=== PATIENT | male | born 2000 | race Caucasian/White ===

== ENCOUNTER 2022-12-05 19:13 | Emergency (ER) | payer OTHER, SELFPAY ==
[2022-12-05 19:24] VITALS: BP 142/85; PULSE 98; RESP 20; TEMP 36.6; O2SAT 99
--- NOTE | 2022-12-05 19:30 | DI.RAD_ITS ---
Exam(s) XR TOE RT FIFTH EXAM: XR TOE RT FIFTH CLINICAL HISTORY: trauma. TECHNIQUE: 2D digital imaging was performed. COMPARISON: No exams were available for comparison FINDINGS: BONES: No acute fracture is present. No bony destructive lesion is seen. JOINTS: No dislocation present. SOFT TISSUE: Swelling around 5th toe. Partial toenail avulsion. IMPRESSION: Partial toenail avulsion. No fracture. DATA REPOSITORY: RADIATION DOSE DELIVERED:
--- NOTE | 2022-12-05 20:39 | DI.VRAD_ITS ---
PROCEDURE INFORMATION: Exam: XR Right Toe(s) Exam date and time: 12/05/2022 7:49 PM Age: 22 years old Clinical indication: Other: Trauma; Additional info: Trauma to right fifth toe TECHNIQUE: Imaging protocol: Radiologic exam of the right toes. Views: Minimum 2 views. COMPARISON: No relevant prior studies available. FINDINGS: Bones/joints: Bone mineralization is age-appropriate. There is no evidence of fracture. No evidence of dislocation. The joint spaces are adequately preserved; no significant degenerative narrowing and no bony erosion seen. Soft tissues: No radiopaque foreign body present. There is soft tissue swelling present. There appears to be partial avulsion the toenail of the 5th toe. IMPRESSION: 1. No acute osseous abnormality. 2. There is soft tissue swelling present. There appears to be partial avulsion the toenail of the 5th toe. Dictated and Authenticated by: Mich Felix MD. Ordering:ADAIR Smith MD
--- NOTE | 2022-12-05 21:32 | W.ED.GENAD ---
Discharge Plan Disposition Patient Disposition: Home Discharge Details Clinical Impression: Avulsion of toenail of right foot Primary Care Provider: None,None ED Provider: Luis Goldstein Home Meds and New Rx's Prescriptions: No Action No Known Home Meds Discharge Instructions Instructions: Nail Avulsion (ED) Additional Instructions: Please protect your toenail and be very gentle with any dressing changes. Monitor for signs of infection and return immediately if these occur otherwise follow-up with your primary care provider as needed. It is very likely that your toenail will eventually fall off but the longer the nail is left in place will give you the best benefit for normal regrowth but this may not be fully known for months. Stand Alone Forms: Work Release Referrals: Primary Care Provider [Outside] Discharge Data Discharge Date/Time-TO BE ENTERED AT DEPARTURE: 12/05/22 21:46 Medical Decision Making Right little toenail avulsion. No other injury. Patient up-to-date on tetanus. radiological imaging reviewed and shows no acute fracture. Nail was replanted into nailbed after digital block which patient tolerated well. Wound was dressed and patient to follow-up with primary care provider for reassessment as needed or return for any signs of infection. After discussion of diagnosis and plan of care patient has no further needs, questions, or concerns and states clear understanding to return to the emergency department for any worsening symptoms. This documentation was generated using [employer] dictation system, please disregard any oddities of phrase or misspellings. HPI General Mode of arrival: ambulatory. Date/Time Provider Initiated Documentation: 12/05/22 19:29. Limitations to Documentation: no limitations. Information obtained by: patient and RN notes reviewed. History of Present Illness 22 year old M presents to the emergency department with the chief complaint of Right fifth toe injury, described as moderate, and is localized to the right and lower extremity. Patient started experiencing this hour(s) (1) and it has been constant. Patient notes no other symptoms.. Patient did receive the following treatments prior to arrival, none Related Data Home Medications Medication Instructions Recorded Confirmed Unknown [No Known Home Meds] 12/05/22 12/05/22 Allergies Allergy/AdvReac Type Severity Reaction Status Date / Time No Known Allergies Allergy Unverified 12/05/22 19:40 General Stated Complaint: Orthopedic FLORA: 4 Review of Systems Narrative: 6 systems reviewed and unremarkable except what is marked below. Integumentary/Breasts Skin/Breast: Reports as per [facility] All Active Problems (Updated 12/05/22 @ 21:35 by Luis Goldstein NP) Avulsion of toenail of right foot (Acute) Social History Smoking/Tobacco Use Status: Never Smoking risk assessment performed?: Yes Alcohol Intake: current Alcohol Intake frequency: a few times a month Drug use: Rarely Substance use type: marijuana Exam Const General: cooperative, no acute distress and not ill appearing Orientation: alert, awake and oriented x3 HENMT Mouth: moist mucous membranes Resp Effort & Inspection: normal respiratory effort, able to speak in complete sentences and no respiratory distress Cardio Rate: regular rate Rhythm: regular rhythm Pulses: dorsalis pedis present and normal peripheral pulses Skin General skin exam: no rashes or lesions noted Neuro General: patient alert, patient awake, patient oriented x3, moves all extremities and no focal motor deficits Sensory Exam: no sensory deficits noted Extrem General: normal exam except as noted Right lower extremity: foot Details: abnormal to inspection Details: a deformity Location: of the 5th digit (Toenail avulsion), tenderness Location: of another digit Location: the 5th digit and over the nailbed, toes with normal ROM and vascular exam Details: dorsalis pedis pulse present, posterior tibial pulse present and normal capillary refill Course Vital Signs Vital signs: Vital Signs Temperature 36.6 C 12/05/22 19:24 Pulse 98 H 12/05/22 19:24 Respiratory Rate 20 12/05/22 19:24 Blood Pressure 142/85 H 12/05/22 19:24 Pulse Oximetry 99 12/05/22 19:24 Temperature 36.6 C 12/05/22 19:24 Temperature Source Oral 12/05/22 19:24 Pulse 98 H 12/05/22 19:24 Respiratory Rate 20 12/05/22 19:24 Respiratory Effort Normal 12/05/22 19:27 Blood Pressure 142/85 H 12/05/22 19:24 Blood Pressure Position Sitting 12/05/22 19:24 Pulse Oximetry 99 12/05/22 19:24 Oxygen Delivery Method Room Air 12/05/22 19:24 Oxygen Flow Rate 0 12/05/22 19:24 Procedures Nerve Block Nerve Block 1: Time out performed: Yes Local Anesthetic: Lidocaine 1% Amount of anesthesia used (mL): 2 Side: right Nerve Blocks: digital Procedure Successful: Yes Patient Tolerated Procedure: well and no complications
== END 2022-12-05 21:46 | disposition home or self-care (01) ==
PROVIDERS: Emergency Provider Nurse Practitioner Family
DX: S91.204A Unspecified open wound of right lesser toe(s) with damage to nail, initial encounter (principal); W22.8XXA Striking against or struck by other objects, initial encounter
CPT/HCPCS: 64450; 99283; 73660; 99284